=== PATIENT | female | born 1940 ===

== ENCOUNTER 2021-08-26 16:21 | Outpatient (REF) | payer OTHER, SELFPAY ==
[2021-08-26 18:29] LABS: OBS1 NEGATIVE (NEGATIVE)
[2021-08-26 18:30] LABS: OBS Int Ctl Valid YES; OBS2 NEGATIVE (NEGATIVE); OBS3 NEGATIVE (NEGATIVE)
== END 2021-08-26 16:22 | disposition home or self-care (01) ==
LOC: HO.LNP 16:21
PROVIDERS: Visit Provider Internal Medicine Gastroenterology
DX: R10.9 Unspecified abdominal pain (principal)
CPT/HCPCS: 82270